=== PATIENT | female | born 1980 | race Caucasian/White ===

== ENCOUNTER 2016-05-03 16:11 | Emergency (ER) | payer BC ==
[2016-05-03 16:19] VITALS: BP 128/88
[2016-05-03] MEDS ORDERED: Tetan/Diph/Pertus SYR(Tdap)* 0.5 ML SYR(BOOSTRIX) use SYR IM ONE (16:22)
--- NOTE | 2016-05-03 16:28 | UC ---
Laceration HPI - HPI Summary HPI Summary: patient cut right 5th finger on a pain of dirty glass, about 3 cm in length, linear and clean cut, - History Of Current Complaint Chief Complaint: UCLaceration Stated Complaint: RIGHT PINKY LACERATION Time Seen by Provider: 05/03/16 16:14 Hx Obtained From: Patient Laceration Location: Finger Mechanism Of Injury: Sharp Trauma Onset/Duration: Sudden Onset, Lasting Minutes Severity: Mild Pain Intensity: 3 Pain Scale Used: 0-10 Numeric Aggravating Factors: Position, Movement - Allergies/Home Medications Allergies/Adverse Reactions: Allergies Allergy/AdvReac Type Severity Reaction Status Date / Time No Known Allergies Allergy Verified 05/03/16 16:19 Home Medications: Home Medications Phentermine HCl 37.5 mg PO DAILY 05/03/16 [History Confirmed 05/03/16] Sertraline* [Zoloft*] 100 mg PO DAILY 05/03/16 [History Confirmed 05/03/16] PMH/Surg Hx/FS Hx/Imm Hx Previously Healthy: Yes - Surgical History Surgical History: Yes Surgery Procedure, Year, and Place: 2 csections - Family History Known Family History: Positive: Hypertension - Social History Alcohol Use: Rare Substance Use Type: None Smoking Status (MU): Current Every Day Smoker Review of Systems Constitutional: Negative Skin: Other - 3 cm lac Eyes: Negative ENT: Negative Respiratory: Negative Cardiovascular: Negative Gastrointestinal: Negative Genitourinary: Negative Motor: Negative Neurovascular: Negative Musculoskeletal: Negative Neurological: Negative Psychological: Negative All Other Systems Reviewed And Are Negative: Yes Physical Exam Triage Information Reviewed: Yes Appearance: Well-Appearing, Well-Nourished, Pain Distress Vital Signs: Initial Vital Signs Temp 98.3 F 05/03/16 16:15 Pulse 89 05/03/16 16:15 Resp 16 05/03/16 16:15 BP 128/88 05/03/16 16:15 Pulse Ox 100 05/03/16 16:15 Vital Signs Reviewed: Yes Eye Exam: Normal Eyes: Positive: Conjunctiva Clear ENT Exam: Normal ENT: Positive: Normal ENT inspection, Hearing grossly normal, Pharynx normal, TMs normal Dental Exam: Normal Neck exam: Normal Neck: Positive: Supple, Nontender, No Lymphadenopathy Respiratory Exam: Normal Respiratory: Positive: Chest non-tender, Lungs clear, Normal breath sounds Cardiovascular Exam: Normal Cardiovascular: Positive: RRR, No Murmur, Pulses Normal Abdominal Exam: Normal Abdomen Description: Positive: Nontender, No Organomegaly, Soft Bowel Sounds: Positive: Present Musculoskeletal Exam: Normal Musculoskeletal: Positive: Strength Intact, ROM Intact, No Edema Neurological Exam: Normal Neurological: Positive: Alert, Muscle Tone Normal Psychological Exam: Normal Skin: Positive: Other - 3 cm linear simple laceration. crosses the right 5th dip joint Laceration Repair - Laceration Repair 1 Description: Linear Laceration Size After Repair: Length (cm) - 3 cm Modified For Repair: No Cleansing Completed Via Routine Prep: Yes Irrigation With Pressure Irrigation Device: Yes Closure Material: Skin Adhesive, SteriStrips Closure Method: Single Layer Suture Of: Skin Laceration Course/Dx - Course/Dx Course Of Treatment: hx obtained, exam performed, meds reviewed. laceration glued and steri strips, pressure dressing applied. tetanus booster given - Differential Dx - Laceration/Wound Differental Diagnoses: Laceration Provider Diagnoses: 3 cm simple laceration. tetanus administration Discharge - Discharge Plan Condition: Stable Disposition: HOME Patient Education Materials: Laceration (ED) Additional Instructions: take the 3 days of abx to prevent infection. you did received a tetanus booster today. you should be good for 10 years. keep the pressure dressing on for 24 hours and thenkeep spint in place for 3 days, allow the steri strips to fall off on their own.
== END 2016-05-03 16:47 | disposition home or self-care (01) ==
LOC: UCCORT 16:11
DX: S61.216A Laceration without foreign body of right little finger without damage to nail, initial encounter (principal); W25.XXXA Contact with sharp glass, initial encounter; Y93.9 Activity, unspecified; Y92.9 Unspecified place or not applicable; Z23 Encounter for immunization; F17.210 Nicotine dependence, cigarettes, uncomplicated
CPT/HCPCS: 90471; 90715; 99212; G0463

== ENCOUNTER 2017-06-18 13:12 | Emergency (ER) | payer BC ==
[2017-06-18 14:32] VITALS: BP 111/68
--- NOTE | 2017-06-18 15:08 | UC ---
General HPI - HPI Summary HPI Summary: Pt presents requesting a refill of her Xanax. Pt states she ran out on . Pt gets monthly Rx from her doctor - scripts are for TID use, 60 tabs. pt states she doesn't always use 1 per day. Pt states her doctor is out of town and comes back on 06/26. Pt states has an appt for 06/29. pt states she was directed to for a script. Pt states she is taking her other medications as prescribed for anxiety with good control. No SI/HI. Pt without physical complaints at present. I called and spoke with pt's PCP - confirmed hx as above I reviewed [place] [facility] - confirmed as above Pt's medications reviewed this visit - History of Current Complaint Chief Complaint: UCMedRefill Stated Complaint: MED REFILL Time Seen by Provider: 06/18/17 14:57 Hx Obtained From: Patient, Medical Records, Other: - [place] [facility] Hx Last Menstrual Period: unknown Onset Severity: Mild Current Severity: None Pain Intensity: 0 - Allergy/Home Medications Allergies/Adverse Reactions: Allergies Allergy/AdvReac Type Severity Reaction Status Date / Time No Known Allergies Allergy Verified 06/18/17 14:26 Home Medications: Home Medications Citalopram TAB* [CeleXA TAB*] 40 mg PO DAILY 06/18/17 [History Confirmed ] busPIRone TAB* [Buspar *] 30 mg PO BID 06/18/17 [History Confirmed 06/18/17] PMH/Surg Hx/FS Hx/Imm Hx Previously Healthy: Yes Psychological History: Anxiety - Surgical History Surgical History: Yes Surgery Procedure, Year, and Place: 2 csections. ablation - Family History Known Family History: Positive: Hypertension - Social History Occupation: Employed Full-time - [employer] Lives: With Family Alcohol Use: None Substance Use Type: Prescribed Smoking Status (MU): Former Smoker When Did the Patient Quit Smoking/Using Tobacco: 10 years ago Review of Systems Constitutional: Negative Neurological: Negative All Other Systems Reviewed And Are Negative: Yes Physical Exam Triage Information Reviewed: Yes Appearance: Well-Appearing, No Pain Distress, Well-Nourished Vital Signs: Initial Vital Signs Temp 98.8 F 06/18/17 14:28 Pulse 78 06/18/17 14:28 Resp 18 06/18/17 14:28 BP 111/68 06/18/17 14:28 Pulse Ox 99 06/18/17 14:28 Vital Signs Reviewed: Yes Eye Exam: Normal Eyes: Positive: Conjunctiva Clear ENT Exam: Normal ENT: Positive: Normal ENT inspection, Hearing grossly normal, Pharynx normal Dental Exam: Normal Neck exam: Normal Neck: Positive: Supple, Nontender Respiratory Exam: Normal Respiratory: Positive: Chest non-tender, Lungs clear, Normal breath sounds Cardiovascular Exam: Normal Cardiovascular: Positive: RRR, No Murmur, Pulses Normal Abdominal Exam: Normal Abdomen Description: Positive: Nontender, No Organomegaly, Soft Bowel Sounds: Positive: Present Musculoskeletal Exam: Normal Musculoskeletal: Positive: Strength Intact Neurological Exam: Normal Neurological: Positive: Alert Psychological Exam: Normal Psychological: Positive: Normal Response To Family Skin Exam: Normal Course/Dx - Course Course Of Treatment: Pt presents requesting xanax as her rx has run out and her PCP is [place] of the country until 06/26. I spoke with PCP office and confirmed. The covering PA is unable to send / refill controlled RX. I confirmed with [place] [facility]. All consistent. Will Rx 10 tabs xanax. Unable to send electronic Rx - paper Rx written. spoke with Lea. I then sent an addition 1 tab - called [facility] to cancel. Pt aware and in agreement. PCP office aware of 10 tabs - Differential Dx - Multi-Symptom Provider Diagnoses: medication refill Discharge - Sign-Out/Discharge Documenting (check all that apply): Discharge - Discharge Plan Condition: Stable Disposition: HOME Prescriptions: ALPRAZolam TAB* [Xanax TAB*] 0.5 mg PO BID #1 tab MDD 1 Patient Education Materials: Medicine Refill (ED) Referrals: Jaime Davis MD [Primary Care Provider] - (06/29/17 as scheduled) Additional Instructions: You have been given a prescription for 10 tablets of your xanax. Use as instructed It is VERY important that you keep your appointment with Dr. Velazco as scheduled on 06/[address] Velazco's office or go to the emergency department with any questions or concerns - Billing Disposition and Condition Condition: STABLE Disposition: HOME
== END 2017-06-18 15:32 | disposition home or self-care (01) ==
LOC: UCCORT 13:12
DX: Z76.0 Encounter for issue of repeat prescription (principal); Z87.891 Personal history of nicotine dependence
CPT/HCPCS: 99212; G0463

== ENCOUNTER 2018-09-17 15:09 | Emergency (ER) | payer BC ==
[2018-09-17 15:37] VITALS: BP 120/82
--- NOTE | 2018-09-17 16:14 | UC ---
UC General HPI - HPI Summary HPI Summary: 38-year-old woman comes in with a chief complaint of sore throat and burning with urination. Pains on the right side of her throat. Hurts worse when she swallows. No rhinorrhea. No fevers. No ear pain. Last several days patient' s had some dysuria and increased urgency and frequency. He's had UTIs in the past and she says this is what it feels like. Denies any flank pain or suprapubic pain. Denies any abnormal vaginal discharge or concern of STI. - History of Current Complaint Chief Complaint: UCGeneralIllness Stated Complaint: SORE THROAT/URINARY Time Seen by Provider: 09/17/18 16:05 Hx Last Menstrual Period: UTERINE ABLATION Pain Intensity: 4 - Allergy/Home Medications Allergies/Adverse Reactions: Allergies Allergy/AdvReac Type Severity Reaction Status Date / Time No Known Allergies Allergy Verified 09/17/18 15:28 Home Medications: Home Medications Ibuprofen TAB* [Motrin TAB* 800 MG] 800 mg PO Q6H PRN 09/17/18 [History Confirmed 09/17/18] Nortriptyline CAP* [Pamelor CAP*] 75 mg PO BEDTIME 09/17/18 [History Confirmed 09/17/18] PMH/Surg Hx/FS Hx/Imm Hx Previously Healthy: Yes - Surgical History Surgical History: Yes Surgery Procedure, Year, and Place: 2 c-sections. ablation - Family History Known Family History: Positive: Hypertension - Social History Alcohol Use: Rare Substance Use Type: Prescribed Smoking Status (MU): Former Smoker When Did the Patient Quit Smoking/Using Tobacco: 10 years ago Household Exposure Type: Cigarettes Review of Systems All Other Systems Reviewed And Are Negative: Yes Constitutional: Positive: Negative Skin: Positive: Negative Eyes: Positive: Negative ENT: Positive: Sore Throat Respiratory: Positive: Negative Cardiovascular: Positive: Negative Gastrointestinal: Positive: Negative Genitourinary: Positive: Dysuria, Frequency, Urgency Motor: Positive: Negative Neurovascular: Positive: Negative Musculoskeletal: Positive: Negative Neurological: Positive: Negative Psychological: Positive: Negative Is Patient Immunocompromised?: No Physical Exam Triage Information Reviewed: Yes Appearance: Well-Appearing, No Pain Distress, Well-Nourished Vital Signs: Initial Vital Signs Temp 98.2 F 09/17/18 15:30 Pulse 74 09/17/18 15:30 Resp 16 09/17/18 15:30 BP 120/82 09/17/18 15:30 Pulse Ox 100 09/17/18 15:30 Vital Signs Reviewed: Yes Eye Exam: Normal Eyes: Positive: Conjunctiva Clear ENT: Positive: Pharyngeal erythema, TMs normal, Tonsillar swelling - 1+ B/L, Uvula midline. Negative: Tonsillar exudate, Muffled voice, Hoarse voice Neck: Positive: Supple Respiratory: Positive: Lungs clear, Normal breath sounds, No respiratory distress Cardiovascular: Positive: RRR Abdomen Description: Positive: Nontender. Negative: CVA Tenderness (R), CVA Tenderness (L) Musculoskeletal Exam: Normal Musculoskeletal: Positive: Strength Intact, ROM Intact Neurological Exam: Normal Neurological: Positive: Alert, Muscle Tone Normal Psychological: Positive: Age Appropriate Behavior Skin Exam: Normal Course/Dx - Diagnoses Provider Diagnosis: Pharyngitis, UTI (urinary tract infection) Discharge - Sign-Out/Discharge Documenting (check all that apply): Patient Departure All imaging exams completed and their final reports reviewed: No Studies - Discharge Plan Condition: Stable Disposition: HOME Prescriptions: Amoxicillin PO (*) [Amoxicillin 500 MG CAP*] 500 mg PO TID #30 cap Fluconazole 150 MG TAB* [Diflucan 150 MG TAB*] 150 mg PO ONCE #2 tablet Patient Education Materials: Urinary Tract Infection in Women (ED), Pharyngitis (ED) Referrals: Jaime Davis MD [Primary Care Provider] - Additional Instructions: FOLLOW UP WITH YOUR DOCTOR IF NOT COMPLETELY IMPROVED. GET REEVALUATED SOONER IF WORSE OR ANY QUESTIONS OR CONCERNS. - Billing Disposition and Condition Condition: STABLE Disposition: Home
== END 2018-09-17 16:21 | disposition home or self-care (01) ==
LOC: UCCORT 15:09
DX: J02.9 Acute pharyngitis, unspecified (principal); N39.0 Urinary tract infection, site not specified; Z87.891 Personal history of nicotine dependence
CPT/HCPCS: 81003; 84702; 87077; 87086; 87186; 87651; 99212; G0463

== ENCOUNTER 2018-10-15 16:10 | Emergency (ER) | payer BC ==
[2018-10-15 16:27] VITALS: BP 114/79
--- NOTE | 2018-10-15 16:42 | ED ---
Back Pain - HPI Summary HPI Summary: The 38 yr old female patient has three complaints: One- increased frequency of urination and some dysuria. SHe feels she has a UTI , onset of symptoms over the past three days. TWO- Sacral/ tailbone pain with bruising. Onset over the past weekend; three days ago. She was going down water slides and hitting hard at times. She is able to walk of and sit but has moderate pain. Three- the patient had blood drawn two weeks ago in the right antecubital area. She has some swelling and tenderness to the right arm in vein where blood was drawn. This has developed over the past five days. Pain is 4/10. - History of Current Complaint Chief Complaint: UCBackPain Stated Complaint: BACK PAIN/RT ARM SKIN ISSUE Time Seen by Provider: 10/15/18 16:29 Hx Last Menstrual Period: 2015 s/p uterine ablation Pain Intensity: 4 - Allergies/Home Medications Allergies/Adverse Reactions: Allergies Allergy/AdvReac Type Severity Reaction Status Date / Time No Known Allergies Allergy Verified 10/15/18 16:23 Home Medications: Home Medications Menthol [Biofreeze] 1 applic TOPICAL SEE INSTRUCTIONS PRN 10/15/18 [History Confirmed 10/15/18] PMH/Surg Hx/FS Hx/Imm Hx - Surgical History Surgery Procedure, Year, and Place: 2 c-sections. ablation Infectious Disease History: No Infectious Disease History: Denies: Traveled Outside the [place] in Last 30 Days - Family History Known Family History: Positive: Hypertension - Social History Occupation: Employed Full-time Alcohol Use: Rare Substance Use Type: Reports: None Smoking Status (MU): Former Smoker Review of Systems Constitutional: Negative Positive: dysuria, frequency Positive: Other - swelling in the medial right antecube area where blood was drawn. Positive: Bruising - tailbone All Other Systems Reviewed And Are Negative: Yes Physical Exam Triage Information Reviewed: Yes Vital Signs On Initial Exam: Initial Vitals Temp Pulse Resp BP Pulse Ox 98.4 F 90 16 114/79 99 10/15/18 16:20 10/15/18 16:20 10/15/18 16:20 10/15/18 16:20 10/15/18 16:20 Vital Signs Reviewed: Yes Appearance: Positive: Well-Appearing, No Pain Distress Skin: Positive: Warm, Skin Color Reflects Adequate Perfusion Head/Face: Positive: Normal Head/Face Inspection Eyes: Positive: EOMI ENT: Positive: Nasal congestion Neck: Positive: Nontender Respiratory/Lung Sounds: Positive: Clear to Auscultation, Breath Sounds Present Cardiovascular: Positive: RRR. Negative: Murmur Abdomen Description: Positive: Nontender Musculoskeletal: Positive: Strength/ROM Intact, Other - bruise with tenderness over the tailbone tenderness and STS about 2 cm over the medial right antecube area. Neurological: Positive: Sensory/Motor Intact, Alert, Oriented to Person Place, Time, CN Intact II-III Psychiatric: Positive: Normal - [place] Coma Scale Best Eye Response: 4 - Spontaneous Best Motor Response: 6 - Obeys Commands Best Verbal Response: 5 - Oriented Coma Scale Total: 15 Diagnostics - Vital Signs Vital Signs Temp Pulse Resp BP Pulse Ox 10/15/18 16:20 98.4 F 90 16 114/79 99 - Laboratory Lab Results: Lab Results 10/15/18 Range/Units 16:31 POC Urine Color Light yellow POC Urine Clarity Slightly cloudy POC Urine pH 6.0 (5-9) POC Ur Specif [place] 1.010 (1.010-1.030) POC Urine Protein Negative (Negative) POC Ur Glucose (UA) Negative (Negative) POC Urine Ketones Negative (Negative) POC Urine Blood Negative (Negative) POC Urine Nitrite Negative (Negative) POC Urine Bilirubin Negative (Negative) POC Urine Urobilinogen 0.2 (Negative) POC U Leukocyte Esteras 2+ A (Negative) Lab Statement: Any lab studies that have been ordered have been reviewed, and results considered in the medical decision making process. - Radiology tailbone Radiology Interpretation Completed By: Radiologist - nad Back Pain Course/Dx - Course Course Of Treatment: 38 yr old with UTI Rx with macrobid. Contusion to tailbone. Swelling in right antecube_ recommend to the ER for US to eval for DVT. - Diagnoses Provider Diagnoses: UTI (urinary tract infection), Contusion of coccyx, Phlebitis alone Discharge - Sign-Out/Discharge Documenting (check all that apply): Patient Departure All imaging exams completed and their final reports reviewed: Yes - Discharge Plan Condition: Good Disposition: HOME-RECOMMEND TO ED Prescriptions: Nitrofurantoin Monohyd/M-Cryst [Macrobid 100 mg Capsule] 100 mg PO BID #14 cap Patient Education Materials: Urinary Tract Infection in Women (DC), Contusion in Adults (ED), Superficial Thrombophlebitis (ED) Referrals: Jaime Davis MD [Primary Care Provider] - 1 Day Additional Instructions: YOU SHOULD GO TO THE ER FOR ULTRASOUND OF YOUR RIGHT ARM TO BE SURE NO BLOOD CLOT IN YOUR ARM. - Billing Disposition and Condition Condition: GOOD Disposition: Home-Recommend to ED
--- NOTE | 2018-10-19 07:18 | UC ---
- Progress Note Progress Note: + E. Coli urine+ sensitive to macrobid no change ulij 10/19/18 Course/Dx - Diagnoses Provider Diagnoses: UTI (urinary tract infection), Contusion of coccyx, Phlebitis alone Discharge - Sign-Out/Discharge Documenting (check all that apply): Post-Discharge Follow Up All imaging exams completed and their final reports reviewed: Yes - Discharge Plan Condition: Good Disposition: HOME-RECOMMEND TO ED Prescriptions: Nitrofurantoin Monohyd/M-Cryst [Macrobid 100 mg Capsule] 100 mg PO BID #14 cap Patient Education Materials: Urinary Tract Infection in Women (DC), Superficial Thrombophlebitis (ED), Contusion in Adults (ED) Referrals: Jaime Davis MD [Primary Care Provider] - 1 Day Additional Instructions: YOU SHOULD GO TO THE ER FOR ULTRASOUND OF YOUR RIGHT ARM TO BE SURE NO BLOOD CLOT IN YOUR ARM. - Billing Disposition and Condition Condition: GOOD Disposition: Home-Recommend to ED
== END 2018-10-15 17:16 | disposition home health service (06) ==
LOC: UCCORT 16:10
DX: N39.0 Urinary tract infection, site not specified (principal); S30.0XXA Contusion of lower back and pelvis, initial encounter; Y93.18 Activity, surfing, windsurfing and boogie boarding; Y92.9 Unspecified place or not applicable; I80.9 Phlebitis and thrombophlebitis of unspecified site; Z87.891 Personal history of nicotine dependence
CPT/HCPCS: 72220; 81003; 87077; 87086; 87186; 99212; G0463

== ENCOUNTER 2019-01-10 10:47 | Emergency (ER) | payer BC ==
--- NOTE | 2019-01-10 12:32 | UC ---
Complaint Female HPI - HPI Summary HPI Summary: 38 y/o female presents to the urgent care c/o Urinary urgency and frequency, intermittent lower abdominal pain for the past week. Pt denies urinary burning, but she also thinks she has an vaginal discharge w/ mild itchiness. Pt denies Hx of STD's, but would like to screen for STd's today. Pelvic pain is mild cramping and intermittent 2/10, w/o any radiation. LMP: 3 years ago w/ Hx of Uterine ablation. Pt alos c/o of B/L ear pressure and pain or discomfort associated w/ light headedness at times for the past 2 days. She feels like the room is moving when she changes in positions. Pt denies ALEXIS, visual changes, fever, chills, SOB, chest pain, flank pain, abdominal pain, N/V/D. - History Of Current Complaint Chief Complaint: UCGeneralIllness Stated Complaint: UTI/EAR PAIN Time Seen by Provider: 01/10/19 12:30 Hx Obtained From: Patient Hx Last Menstrual Period: 2015 - ablation ?: No Onset/Duration: Gradual Onset, Lasting Weeks - 1 week, Still Present, Worse Since - 2 days Timing: Constant Severity Initially: Mild Severity Currently: Moderate Pain Intensity: 2 Pain Scale Used: 0-10 Numeric Character: Dull Aggravating Factor(s): Urination Alleviating Factor(s): Nothing Associated Signs And Symptoms: Positive: Vaginal Bleeding/Discharge. Negative: Fever, Back Pain, Nausea, Vomiting(# Of Episodes =), Genital Swelling - Risk Factors Ectopic Risk Factor: Negative Ovarian Torsion Risk Factor: Negative - Allergies/Home Medications Allergies/Adverse Reactions: Allergies Allergy/AdvReac Type Severity Reaction Status Date / Time No Known Allergies Allergy Verified 01/10/19 11:14 PMH/Surg Hx/FS Hx/Imm Hx Previously Healthy: Yes Neurological History: Migraine - Surgical History Surgical History: Yes Surgery Procedure, Year, and Place: 2 c-sections. ablation - Family History Known Family History: Positive: Hypertension, Diabetes - Social History Occupation: Employed Full-time Lives: With Family Alcohol Use: Rare Substance Use Type: None Smoking Status (MU): Former Smoker When Did the Patient Quit Smoking/Using Tobacco: 2006 Household Exposure Type: Cigarettes - Immunization History Most Recent Tetanus Shot: 05/03/16 Review of Systems All Other Systems Reviewed And Are Negative: Yes Constitutional: Positive: Negative Skin: Positive: Negative Eyes: Positive: Negative ENT: Positive: Ear Ache - B/L ear pressure and pain w/ mild dizziness Respiratory: Positive: Negative Cardiovascular: Positive: Negative Gastrointestinal: Positive: Negative Genitourinary: Positive: Dysuria, Frequency, Urgency, Vaginal/Penile Itching, Vaginal/Penile Discharge Motor: Positive: Negative Neurovascular: Positive: Negative Musculoskeletal: Positive: Negative Neurological: Positive: Negative Psychological: Positive: Negative Is Patient Immunocompromised?: No Physical Exam - Summary Physical Exam Summary: VITAL SIGNS: Reviewed. GENERAL: Patient is a well developed and nourished female who is sitting comfortable in the examining table. Patient is not in any acute respiratory distress. HEAD AND FACE: No signs of trauma. No ecchymosis, hematomas or skull depressions. No sinus tenderness. EYES: PERRLA, EOMI x 2, No injected conjunctiva, clear watery eyes, no nystagmus. No photophobia. EARS: Hearing grossly intact. Ear canals and tympanic membranes are within normal limits. MOUTH: pharynx with no erythema, no exudates,no palatal petechiae. no B/L tonsillar enlargement Uvula in midline. ENT: Positive: Normal ENT inspection, Hearing grossly normal, Pharynx normal, TMs normal - B/L external ear canal clear, B/L TM's WNL, Other: - no maxillary or frontal sinus tenderness on percussion. Positive Aileen-hallpike maneuver. Negative: Tonsillar swelling, Tonsillar exudate. CHEST: Symmetric, no tenderness at palpation LUNGS: Clear to auscultation bilaterally. No wheezing or crackles. CVS: Regular rate and rhythm, S1 and S2 present, no murmurs or gallops appreciated. ABDOMEN: Soft, non-tender. No signs of distention. No rebound no guarding, and no masses palpated. Bowel sounds are normal. Pelvic: I was assisted by nurse Dunia. External genitalia within normal limits. There is no lesions there is no masses noted. Speculum exam: The vaginal khan are within normal limits w/ white grayish vaginal discharge, w/ fishy odor, lesions or rashes. The cervix is closed with no lesions or masses. There is no CMT's, and no adnexal masses. Sample sent to Lab for G/C and Affirm panel. BACK:no scoliosis or lesions, non tender to palpation, No B/L CVA tenderness EXTREMITIES: FROM in all major joints, no edema, no cyanosis or clubbing. NEURO: Alert and oriented x 3. No acute neurological deficits. Speech is normal and follows commands. SKIN: Dry and warm Triage Information Reviewed: Yes Vital Signs: Initial Vital Signs Temp 98.5 F 01/10/19 11:14 Pulse 88 01/10/19 11:14 Resp 18 01/10/19 11:14 BP 124/85 01/10/19 11:14 Pulse Ox 100 01/10/19 11:14 Complaint Female Dx - Course Course Of Treatment: 38 y/o female presents to the urgent care c/o Urinary urgency and frequency, intermittent lower abdominal pain for the past week. Pt denies urinary burning, but she also thinks she has an vaginal discharge w/ mild itchiness. Pt denies Hx of STD's, but would like to screen for STd's today. Pelvic pain is mild cramping and intermittent 2/10, w/o any radiation. LMP: 3 years ago w/ Hx of Uterine ablation. Pt alos c/o of B/L ear pressure and pain or discomfort associated w/ light headedness at times for the past 2 days. She feels like the room is moving when she changes in positions. Pt denies ALEXIS, visual changes, fever, chills, SOB, chest pain, flank pain, abdominal pain, N/V/D. Hx obtained. Pt is hemodynamically stgable, A&OX3, Vitals: WNL. PE: WNL except positive for Aileen-hallpike maneuver, Ear WNL. I was assisted by nurse Duque for pelvic exam. External genitalia within normal limits. There is no lesions there is no masses noted. Speculum exam: The vaginal khan are within normal limits w/ white grayish vaginal discharge, w/ fishy odor, lesions or rashes. The cervix is closed with no lesions or masses. There is no CMT's, and no adnexal masses. Sample sent to Lab for G/C and Affirm panel. Pt with Bacterial vaginosis on pelvic examination. ; positive for Leukoesteraces. Urine will be sent to lab as well as pelvic swabs to r/o any abnormality. Pt will be notified of any abnormality for further management. Pt Rx Metronidazole vaginal cream and Meclizine PO as directed below. Pt educated on STD's. Advised to f/u with BAKERY CLERK for PAP. Pt also advised If symptoms do not improve to f/u with her PCP or her ENT DR Purdy for further management in possible BPPV. D/C instructions explained. Pt understood and agreed. Left the clinic ambulating. - Differential Dx/Diagnosis Differential Diagnosis/HQI/PQRI: Appendicitis, Cervicitis, Ovarian Cyst, Ovarian Torsion, Pelvic Inflammatory Disease, , Renal Colic, Sexually Transmitted Disease, Ureteral Stone, Urinary Tract Infection Provider Diagnosis: Bacterial vaginosis, Benign paroxysmal positional vertigo, Screening for STD ( sexually transmitted disease) Discharge ED - Sign-Out/Discharge Documenting (check all that apply): Patient Departure - d/c home All imaging exams completed and their final reports reviewed: No Studies - Discharge Plan Condition: Stable Disposition: HOME Prescriptions: Cephalexin CAP* [Keflex CAP*] 500 mg PO TID #21 cap Fluconazole 150 MG TAB* [Diflucan 150 MG TAB*] 150 mg PO ONCE #2 tablet Meclizine TAB* [Antivert 12.5 TAB*] 25 mg PO TID #21 tab metroNIDAZOLE VAGINAL 0.75%* 1 applic VAGINAL BEDTIME #1 shani Patient Education Materials: Bacterial Vaginosis (ED), Benign Paroxysmal Positional Vertigo (ED) Referrals: Jaime Davis MD [Primary Care Provider] - 3 Days Nathan Purdy MD [Medical Doctor] - 1 Week Additional Instructions: 1- Please apply medications as directed. 2- Specimen were sent to lab, if anything abnormal you will receive a call from us for further treatment. 3-If not improvement of symptoms please return to the urgent care or f/u with your BAKERY CLERK for further treatment 4- Take Meclizine PO to alleviate dizziness. Please f/u w/ ENT Dr Purdy for further management in your dizziness you may be developing BPPV. 5- Urine culture sent to lab you will be notified of any abnormality for further management. - Billing Disposition and Condition Condition: STABLE Disposition: Home - Attestation Statements Provider Attestation: Per institutional requirements, I have reviewed the chart, however, I was not consulted specifically or made aware of this patient by the midlevel provider. I did not personally evaluate, interact with , or disposition this patient.
[2019-01-10 13:24] VITALS: BP 130/76
--- NOTE | 2019-01-12 07:54 | UC ---
- Progress Note Progress Note: Positive for BV (treated), yeast and UTI. Sensitivities on UTI pending. Recommend treating for yeast after being treated for UTI once sensitivities are available. Course/Dx - Diagnoses Provider Diagnoses: Bacterial vaginosis, Benign paroxysmal positional vertigo, Screening for STD ( sexually transmitted disease) Discharge ED - Sign-Out/Discharge Documenting (check all that apply): Post-Discharge Follow Up All imaging exams completed and their final reports reviewed: No Studies - Discharge Plan Condition: Stable Disposition: HOME Prescriptions: Meclizine TAB* [Antivert 12.5 TAB*] 25 mg PO TID #21 tab metroNIDAZOLE VAGINAL 0.75%* 1 applic VAGINAL BEDTIME #1 shani Patient Education Materials: Bacterial Vaginosis (ED), Benign Paroxysmal Positional Vertigo (ED) Referrals: Jaime Davis MD [Primary Care Provider] - 3 Days Nathan Purdy MD [Medical Doctor] - 1 Week Additional Instructions: 1- Please apply medications as directed. 2- Specimen were sent to lab, if anything abnormal you will receive a call from us for further treatment. 3-If not improvement of symptoms please return to the urgent care or f/u with your CLAY HOUSE WORKER for further treatment 4- Take Meclizine PO to alleviate dizziness. Please f/u w/ ENT Dr Purdy for further management in your dizziness you may be developing BPPV. 5- Urine culture sent to lab you will be notified of any abnormality for further management. - Billing Disposition and Condition Condition: STABLE Disposition: Home
--- NOTE | 2019-01-13 07:18 | UC ---
- Progress Note Progress Note: Urine culture from January 10, 2019 comes back positive for Escherichia coli. Patient was also positive for BV and Zoey. She was treated with MetroGel. Gonorrhea and chlamydia results are pending. I have called in a prescription for Keflex for the UTI and Diflucan for the yeast. Nursing to call patient inform them of the results and the treatment. If the patient has worsened with symptoms of pyelonephritis consider ED evaluation in the emergency department. Course/Dx - Diagnoses Provider Diagnoses: Bacterial vaginosis, Benign paroxysmal positional vertigo, Screening for STD ( sexually transmitted disease) Discharge ED - Sign-Out/Discharge Documenting (check all that apply): Patient Departure All imaging exams completed and their final reports reviewed: No Studies - Discharge Plan Condition: Stable Disposition: HOME Prescriptions: Cephalexin CAP* [Keflex CAP*] 500 mg PO TID #21 cap Fluconazole 150 MG TAB* [Diflucan 150 MG TAB*] 150 mg PO ONCE #2 tablet Meclizine TAB* [Antivert 12.5 TAB*] 25 mg PO TID #21 tab metroNIDAZOLE VAGINAL 0.75%* 1 applic VAGINAL BEDTIME #1 shani Patient Education Materials: Bacterial Vaginosis (ED), Benign Paroxysmal Positional Vertigo (ED) Referrals: Jaime Davis MD [Primary Care Provider] - 3 Days Nathan Purdy MD [Medical Doctor] - 1 Week Additional Instructions: 1- Please apply medications as directed. 2- Specimen were sent to lab, if anything abnormal you will receive a call from us for further treatment. 3-If not improvement of symptoms please return to the urgent care or f/u with your MEASUREMENT PSYCHOLOGIST for further treatment 4- Take Meclizine PO to alleviate dizziness. Please f/u w/ ENT Dr Purdy for further management in your dizziness you may be developing BPPV. 5- Urine culture sent to lab you will be notified of any abnormality for further management. - Billing Disposition and Condition Condition: STABLE Disposition: Home
[2019-01-13 13:09] LABS: Chlamydia trachomatis NAA Negative (Negative); Neisseria gonorrhoeae (GC) NAA Negative (Negative)
== END 2019-01-10 13:22 | disposition home or self-care (01) ==
LOC: UCCORT 10:47
DX: N76.0 Acute vaginitis (principal); H81.10 Benign paroxysmal vertigo, unspecified ear; Z11.3 Encounter for screening for infections with a predominantly sexual mode of transmission; N39.0 Urinary tract infection, site not specified; B96.20 Unspecified Escherichia coli [E. coli] as the cause of diseases classified elsewhere
CPT/HCPCS: 81003; 87077; 87086; 87186; 87480; 87491; 87510; 87591; 87661; 99212; G0463